=== PATIENT | male | born 1970 | race Caucasian/White ===

== ENCOUNTER 2020-01-10 01:07 | Outpatient (CLI) | payer OTHER, SELFPAY ==
[2020-01-10 18:04] LABS: SARS-CoV-2 RNA PCR Negative
== END 2020-01-10 01:08 | disposition home or self-care (01) ==
LOC: ANHCOVIDDT 01:07
PROVIDERS: PCP Family Medicine; Visit Provider Internal Medicine Gastroenterology
DX: Z01.818 Encounter for other preprocedural examination (principal); Z20.828 Contact with and (suspected) exposure to other viral communicable diseases
CPT/HCPCS: 87635; C9803; U0003

== ENCOUNTER 2020-01-14 00:39 | Day surgery (SDC) | payer OTHER, SELFPAY ==
[2020-01-08 13:59] VITALS: BMI 27.8
[2020-01-14 06:23] VITALS: BMI 27.4
[2020-01-14] MEDS: LACTATED RINGERS 1,000 ML 150 ML IV CONT (06:33)
--- NOTE | 2020-01-14 06:55 | WPDANESEPPF ---
Anes - Initial Pre Proc Eval Procedure: Operation Date: 01/14/20 07:30 Proposed Procedures p Screening Colonoscopy - Chava Baltazar MD Date/Time: 01/14/20 06:55 Surgeon: Chava Baltazar MD Pre Op Diagnosis: neoplasm screening Patient Data Age: 49 Gender: M Height: 5 ft 8 in Weight: 82 kg Allergies Allergy/AdvReac Type Severity Reaction Status Date / Time No Known Allergies Allergy Verified 01/14/20 06:21 Home Medications Medication Instructions Recorded Confirmed Type simvastatin 20 mg tablet 20 mg PO DAILY #90 tablet 10/27/19 01/14/20 Rx Patient hx anesthesia problems: none Family hx anesthesia problems: none PMFSH Past Medical History Medical History Mixed hyperlipidemia Surgical History Surgical History History of tonsillectomy Family History Family History Other Diabetes mellitus Family history of coronary artery disease Family history of elevated blood lipids Hypertension Social History Social History Smoking status: Never smoker Second hand tobacco smoke exposure: No Alcohol intake: never Substance use type: does not use Living arrangements: with family Spiritual care concerns: No Anes - Eval Final PreProcedure Day of Procedure 01/14/20 06:55 Patient weight: overweight Heart: regular rate and rhythm Lungs: clear to auscultation Airway: Mallampati scale class 1 Neurological: alert and oriented Last oral intake: >/= 8 hours ASA classification: II Emergent: no Anesthetic plan: proceed Anesthesia type and monitoring: general GIVS and standard monitoring Informed Consent: The patient's anesthetic plan and its attendant risks and benefits were discussed with the patient/family/POA. Questions were solicited and answers provided to the satisfaction of the patient/family/POA.
[2020-01-14 07:21] VITALS: BP 120/83; PULSE 64; RESP 16; TEMP 36.8; O2SAT 97
--- NOTE | 2020-01-14 07:49 | PM.HPGS ---
History of Present Illness History of Present Illness Consent: Risks, benefits, and alternatives have been discussed and questions answered. Patient agrees to proceed with procedure. Chief complaint: neoplasm screening Narrative: Asim Lamb is a 49 year old male here for first screening colonoscopy Review of Systems Constitutional: Constitutional: Denies headache(s) and Denies weakness Eyes: Eyes: Denies blurry vision ENT: Reports Normal hearing present, Denies headache(s) and Denies neck pain Cardiovascular: Cardiovascular: Denies chest pain and Denies dyspnea Respiratory: Respiratory: Denies dyspnea Gastrointestinal: Gastrointestinal: Reports no additional gastrointestinal complaints Genitourinary: Genitourinary: Denies dysuria Musculoskeletal: Musculoskeletal: Denies neck pain Integumentary/Breasts: Skin/Breast: Denies dry skin Neurologic: Reports Normal hearing present, Denies headache(s) and Denies weakness Psychiatric: Psychiatric: Denies anxiety Endocrine: Endocrine: Denies change in body appearance Hematologic/Lymphatic: Hematologic/Lymphatic: Denies easy bleeding Allergic/Immunologic: Allergic/Immunologic: Denies urticaria PMFSH Past Medical History Medical History (Updated 01/14/20 @ 07:49 by Chava Baltazar MD) Colon cancer screening Mixed hyperlipidemia Surgical History Surgical History History of tonsillectomy Family History Family History Other Diabetes mellitus Family history of coronary artery disease Family history of elevated blood lipids Hypertension Social History Social History Smoking status: Never smoker Second hand tobacco smoke exposure: No Alcohol intake: never Substance use type: does not use Living arrangements: with family Spiritual care concerns: No Meds Home Medications and Allergies Home Medications Medication Instructions Recorded Confirmed Type simvastatin 20 mg tablet 20 mg PO DAILY #90 tablet 10/27/19 01/14/20 Rx Allergies Allergy/AdvReac Type Severity Reaction Status Date / Time No Known Allergies Allergy Verified 01/14/20 06:21 Vital Signs Vital Signs - 24 hr 01/14/20 07:21 Temperature 98.2 F Pulse Rate 64 Respiratory Rate 16 Blood Pressure 120/83 Pulse Oximetry 97 Exam Const: General: comfortable and no acute distress HENMT: General nose exam: Normal nares present Eyes: General: appearance normal, both eyes and all related structures Neck: Neck: no JVD Resp: Auscultation: clear to auscultation bilaterally Cardio: Rate: regular rate Rhythm: regular rhythm GI: Inspection: non-distended GI Palp: Yes Soft to palpation Skin: General skin exam: normal color Neuro: General: gait normal Speech: normal speech Extrem: General: normal to inspection Psych: Mental Status: mental status grossly normal Assessment and Plan Assessment and plan (1) Colon cancer screening: Code(s): Z12.11 - Encounter for screening for malignant neoplasm of colon Status: Acute Assessment and Plan: will proceed with colonoscopy
[2020-01-14 07:52] VITALS: BP 107/63; PULSE 62; RESP 15; O2SAT 96
[2020-01-14 08:02] VITALS: BP 101/66; PULSE 60; RESP 22; O2SAT 95
[2020-01-14 08:19] VITALS: BP 106/72; PULSE 53; RESP 18; O2SAT 95
== END 2020-01-14 08:26 | disposition home or self-care (01) ==
PROVIDERS: PCP Family Medicine; Visit Provider Internal Medicine Gastroenterology
PROC: 0DJD8ZZ Inspection of Lower Intestinal Tract, Via Natural or Artificial Opening Endoscopic (ICD-10-PCS; CPT 45378; principal; 2020-01-14 07:30)
DX: Z12.11 Encounter for screening for malignant neoplasm of colon (principal); K57.30 Diverticulosis of large intestine without perforation or abscess without bleeding; K64.8 Other hemorrhoids; E78.2 Mixed hyperlipidemia
CPT/HCPCS: 45378; J2001; J2704; J7120

== ENCOUNTER → 2020-07-05 09:18 | Outpatient (CLI) | payer OTHER, SELFPAY ==
--- NOTE | ~2020-07-05 | MR_ITS ---
EXAMINATION: MR lumbar spine wo con EXAM DATE: 07/05/2020 09:51 INDICATION: Low back pain, occasional leg pain. Symptoms 10 years. TECHNIQUE: Multi-sequential, multiplanar MR images of the lumbar spine were obtained without contrast . Sagittal T1, T2, T2 fat saturation images. Axial T2 weighted images. Correlation is made to lumba r x-ray 2014. FINDINGS: There is moderate to severe disc disease at L4-5, with 3 mm retrolisthesis. 2 to 3 mm retro listhesis L2 on L3 and 3 mm retrolisthesis L3 on L4. The conus medullaris terminates at the L1 level and has normal signal intensity and morphology. There is mild to moderate disc disease L3-4, mild at L2-3 and L5-S1. There are some degenerative endplate signal changes L4-5. There are no suspicious fo johnie vertebral signal abnormalities identified. Incidental horseshoe kidney. Level by level evaluation: T12-L1: Disc does not extend beyond the endplate margin. Facet arthropathy: None. Neural foraminal stenosis: No stenosis. Central canal stenosis: No stenosis. L1-L2: Disc does not extend beyond the endplate margin. Facet arthropathy: Mild. Neural foraminal stenosis: No stenosis. Central canal stenosis: No stenosis. L2-L3: There is a mild to moderate diffuse disc bulge. Facet arthropathy: Mild. Neural foraminal stenosis: Mild right. Central canal stenosis: Mild. L3-L4: There is a mild to moderate diffuse disc bulge. Facet arthropathy: Mild to moderate. Neural foraminal stenosis: Mild to moderate bilateral. Central canal stenosis: Mild. L4-L5: There is a mild to moderate diffuse disc bulge. Facet arthropathy: Mild to moderate. Neural foraminal stenosis: Moderate left, mild to moderate right. Central canal stenosis: Mild to moderate. L5-S1: There is a mild to moderate diffuse disc bulge. Facet arthropathy: Mild. Neural foraminal stenosis: Mild to moderate bilateral. Central canal stenosis: Mild. IMPRESSION: 1. L4-5 moderate to severe disc disease. 2. Mild subluxations. Reviewed, dictated and finalized at location B.
== END ==
PROVIDERS: PCP Family Medicine; Visit Provider Physician Assistant
DX: M51.36 Other intervertebral disc degeneration, lumbar region (principal)
CPT/HCPCS: 72148

== ENCOUNTER → 2022-03-02 12:14 | Outpatient (CLI) | payer OTHER, SELFPAY ==
--- NOTE | ~2022-03-02 | XR_ITS ---
Clinical Indication: Dyspnea PA and lateral views of the chest: Comparison: 09/06/2005 Findings: The lungs are clear, without evidence of focal consolidation or pleural effusion. Cardiome diastinal silhouette is within normal limits. Bones and soft tissues are unremarkable. Impression: Normal chest. Reviewed, dictated and finalized at [facility]. [place] [employer] Impression: Normal chest.
== END ==
PROVIDERS: PCP Family Medicine; Visit Provider Physician Assistant Medical
DX: R06.00 Dyspnea, unspecified (principal)
CPT/HCPCS: 71046

== ENCOUNTER 2022-07-10 01:18 | Day surgery (SDC) | payer OTHER, SELFPAY ==
[2022-06-30 11:27] VITALS: BMI 28.8
--- NOTE | 2022-06-30 11:32 | PC.NURSE ---
Report to the Outpatient Waiting Room, entrance under the green pavilion located off [facility], at time 0630 on date 07/10/22. Planned Procedure Time: 0830. Time changes happen often and if your time is changed the preop area will call you the afternoon before. - You and your visitor will be asked to self-screen and do not enter if you have any COVID symptoms. - A mask is optional within the hospital at this time. Patients may have clear liquids (water, carbonated beverages, clear teas, apple juice) until 3 hours prior to surgery with a maximum of 20 ounces. - No food from midnight until time of surgery Take the following medications with a SIP of water the morning of surgery: INHALER IF NEEDED DO NOT STOP ANY OF YOUR OTHER PRESCRIPTION MEDICATIONS PRIOR TO SURGERY EXCEPT THE FOLLOWING Medications to discontinue per physician: N/A Date to take last dose: N/A Please no make-up, nail thai, hairspray, perfume, deodorant, or body powder the day of surgery. No jewelry (including any body piercings) or valuables the day of surgery, leave them at home. Please take a shower or bath the night before, or the morning of, surgery with an antibacterial soap. Wear comfortable, loose fitting clothing. - Jewelry must be removed prior to entering the operating room. Rings and piercings that are not removed may be cut off. - The hospital will not accept responsibility for valuables. - Please leave all valuables, including medications, at home the day of surgery. If you are going home after surgery, a licensed helper/driver must drive you home. - NO public transportation without another adult if you receive anesthesia. - We recommend that an adult stay with you for 24 hours following discharge. - We also recommend that you do not drive, make important decision, drink alcoholic beverages, or take any drugs that were not prescribed by your health care provider for at least 24 hours after your discharge time. Follow any additional instructions given to you from your surgeon. If you or anyone in your household have experienced Covid symptoms in the past week, please notify your surgeon or the nurse liaison at the phone number below for possible testing. Telephone instructions given to PT - HERRERA BECKER and asked if any additional questions and then verbalized understanding. Patient advised to call surgeon office or pre surgery nurse liaison [phone] if any additional questions.
[2022-07-10 06:59] VITALS: BP 108/74; PULSE 61; RESP 18; TEMP 36.8; O2SAT 96
[2022-07-10] MEDS: LACTATED RINGERS 1,000 ML 30 ML IV CONT (07:25)
--- NOTE | 2022-07-10 07:47 | WPDANESEPPF ---
Anes - Initial Pre Proc Eval Procedure: Operation Date: 07/10/22 08:30 Proposed Procedures p Excision of Left Posterior Shoulder Subcutaneous Mass - Marvin Joe MD Date/Time: 07/10/22 07:47 Surgeon: Marvin Joe MD Pre Op Diagnosis: Left Posterior Shoulder Lipoma Patient Data Age: 51 Gender: M Height: 1.73 m Weight: 87 kg Last Vital Signs Temp 98.3 F 07/10/22 06:59 Pulse 61 07/10/22 06:59 Resp 18 07/10/22 06:59 BP 108/74 07/10/22 06:59 Pulse Ox 96 07/10/22 06:59 O2 Del Method Room Air 07/10/22 06:59 Allergies Allergy/AdvReac Type Severity Reaction Status Date / Time No Known Allergies Allergy Verified 07/10/22 07:33 Home Medications Medication Instructions Recorded Confirmed Type simvastatin 20 mg tablet (Zocor) 20 mg PO DAILY #90 tabs 01/09/22 07/10/22 Rx albuterol sulfate 90 mcg/actuation 1 inh inhalation Q4H PRN shortness 03/02/22 07/10/22 Rx aerosol inhaler of breath or wheezing #8.5 grams famotidine 20 mg tablet 20 mg PO QHS #30 tabs 04/25/22 07/10/22 Rx omeprazole 40 mg capsule,delayed 40 mg PO DAILY #30 caps 04/25/22 07/10/22 Rx release Patient hx anesthesia problems: none Family hx anesthesia problems: none Results Review: All pre-operative results and documents have been reviewed as part of the pre-operative evaluation. [facility] Past Medical History Medical History Colon cancer screening GERD (gastroesophageal reflux disease) Mixed hyperlipidemia Surgical History Surgical History (Updated 06/28/22 @ 13:00 by Keya Amanda) H/O vasectomy History of tonsillectomy Family History Family History (Updated 06/28/22 @ 12:59 by Keya Amanda) Father Acute myocardial infarction Family history of coronary artery disease Skin cancer Unknown Diabetes mellitus Heart disease Hypertension Other Family history of elevated blood lipids Social History Social History Smoking status: Never smoker Second hand tobacco smoke exposure: No Alcohol intake: current Drinks per week: 3 Alcohol use details: socially; seldom Substance use: never Substance use type: does not use Lack of Transportation: No Lack of Food: Never True Current Housing: I Have Housing Concerned About Future Housing: No Difficulty Paying Gas/Electric Bills: No Difficulty Paying for Meds: No Currently Unemployed: No Education: Bachelor's Degree Difficulty w/ Childcare or Family Care: No Living arrangements: with family Occupation/Education: occupation 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 Informed Consent: The patient's anesthetic plan and its attendant risks and benefits were discussed with the patient/family/POA. Questions were solicited and answers provided to the satisfaction of the patient/family/POA.
--- NOTE | 2022-07-10 08:02 | WPDHPUPDATE1 ---
History and Physical Update Update Date/Time: 07/10/22 08:02 History and Physical has been reviewed, including an updated exam of the patient. There are NO changes in the patient's condition. Risks, benefits, and alternatives have been discussed and questions answered. Patient agrees to proceed with procedure.
[2022-07-10] MEDS: ceFAZolin 2 GM/D5W 50 ML 2 GM/50 ML BAG IVPB (08:21)
[2022-07-10 09:06] VITALS: BP 109/74; PULSE 68; RESP 16; O2SAT 95
--- NOTE | 2022-07-10 09:07 | W.PM.PROC2 ---
Procedure Note - Detailed Date of Procedure 07/10/22 Pre-op Diagnosis Left Posterior Shoulder Lipoma Post-op Diagnosis Same Procedure Performed Excision left posterior shoulder lipoma. Surgeon Marvin Joe MD [employer] JAILYN Tucker Anesthesia MAC and Local Indications Patient is a 51-year-old gentleman who presents with a slowly growing subcutaneous mass in the posterior left shoulder region. His cousin as some soreness in the area. The clinical suspicion based on palpation and visualization is consistent with a benign lipoma. He presents now for excision of the lipomatous mass. Findings 4 x 3 x 1 cm well-circumscribed subcutaneous lipoma left posterior shoulder. Description of Procedure After informed consent was obtained patient brought to the operating room was placed in the right lateral decubitus position on operating table. The area the posterior shoulder was then prepped and draped in usual sterile fashion. IV sedation was then given by Anesthesia and then I performed a time-out correctly identifying the patient as well as procedure to be performed and verifying the site marking. 1% lidocaine mixed with 0.5% Marcaine with injected around the subcutaneous mass for local anesthetic effect. Then made a transverse incision parallel to the long axis of the upper arm with a scalpel dissection was carried down through the dermis skin with a scalpel. I then used electrocautery to dissect down to the capsule of the lipomatous mass and very carefully dissected the mass out from the deeper subcutaneous tissues of. The fascia extended all the way down to the fascia and underlying muscle but did not go under the fascia. The mass was 4cm in length by 3cm width by 1cm in depth and was sent to pathology for examination. I then irrigated the incision with sterile saline solution hemostasis was achieved with utilized for cautery. The was then closed utilizing multiple layers interrupted 3-0 Vicryl sutures in the subcutaneous tissues. The edges were approximated utilizing a running subcuticular 4 Monocryl suture. The incisions were then cleaned and then skin glue sterile dressings were applied. The patient tolerated the procedure well no complications. All sponges, needles, and instrument counts were correct at the end procedure. EBL was _5__cc. The patient was awakened and taken to recovery in stable and satisfactory condition. Implants None Estimated Blood Loss 5 Drains No Packing No Pathology Yes Complications No immediate complications Condition Stable Disposition PACU [facility] Billing Surgery - Charge Forward: Surgery Billing
[2022-07-10 09:30] VITALS: BP 114/74; PULSE 59; RESP 16; O2SAT 97
[2022-07-10 09:50] VITALS: BP 109/79; PULSE 51; RESP 16
== END 2022-07-10 09:59 | disposition home or self-care (01) ==
PROVIDERS: PCP Family Medicine; Visit Provider Surgery
PROC: (CPT 23071; principal; 2022-07-10 08:30)
DX: D17.22 Benign lipomatous neoplasm of skin and subcutaneous tissue of left arm (principal); E78.2 Mixed hyperlipidemia; K21.9 Gastro-esophageal reflux disease without esophagitis; Z79.51 Long term (current) use of inhaled steroids
CPT/HCPCS: 23071; 88304; J0690; J1100; J2250; J2405; J2704; J3010; J7120

== ENCOUNTER 2022-08-04 09:33 | Outpatient (CLI) | payer OTHER, SELFPAY ==
--- NOTE | 2022-08-04 09:40 | ECHO_ITS ---
Patient Info Name: Asim Lamb Age: 51 years : 1970 Gender: Male Ht: 68 in Wt: 185 lbs BSA: 2.03 m2 HR: 72 bpm BP: 132 / 92 mmHg Technical Quality: Good Exam Date: 08/04/2022 9:53 AM Exam Location: [facility] Patient Status: Outpatient Admit Date: 08/04/2022 Staff Ordering Physician: Brenton Le DO Dress Designer: Olamide Iyer RDCS Attending Provider: Brenton Le DO Referring Physician: Rey MELISSA; Exam Type: CA echo doppler color flow Study Info Indications R07.9 - Chest pain, unspecified Complete two-dimensional, color flow and Doppler transthoracic echocardiogram is performed. Summary 1. Complete two-dimensional, color flow and Doppler transthoracic echocardiogram is performed. 2. Left ventricular chamber dimension is normal. 3. Left ventricular systolic function is normal, estimated at 60-65%. 4. The left ventricular diastolic function is grade I diastolic dysfunction. 5. E/e' 7 is not elevated. 6. Global longitudinal strain is normal at -21.6%. 7. There is trace mitral valve regurgitation. 8. No pulmonary hypertension, estimated pulmonary arterial systolic pressure is 34 mmHg. Left Ventricle E/e' 7 is not elevated. Global longitudinal strain is normal at -21.6%. Left ventricular chamber dimension is normal. Left ventricular systolic function is normal, estimated at 60-65%. The left ventricular diastolic function is grade I diastolic dysfunction. Right Ventricle Right ventricular systolic function is normal and with normal TAPSE 1.7 cm. Right ventricular chamber dimension is normal. Left Atria Left atrial chamber dimension is normal. Right Atria Right atrial chamber dimension is normal. Aortic Valve The aortic valve is trileaflet. There is no aortic valve stenosis. There is no aortic valve regurgitation. Pulmonic Valve There is no pulmonic regurgitation. Mitral Valve There is no mitral valve stenosis. There is trace mitral valve regurgitation. Tricuspid Valve There is no tricuspid valve regurgitation. No pulmonary hypertension, estimated pulmonary arterial systolic pressure is 34 mmHg. Pericardium/Pleural There is no pericardial effusion. Inferior Vena Cava Normal inferior vena cava with >50% collapse upon inspiration consistent with normal right atrial pressure, 5 mmHg. Aorta The aortic root size at the sinus of Valsalva is normal. Left Ventricular Outflow Tract Name Value Normal LVOT 2D LVOT Diameter 2.0 cm LVOT Doppler LVOT Peak Velocity 106 cm/s LVOT Peak Gradient 4 mmHg LVOT Mean Gradient 2 mmHg LVOT VTI 22 cm LVOT VTI/AV VTI Ratio 0.9 LVOT Stroke Volume 69 ml LVOT CO 4.2 l/min LVOT CI 2.1 l/min/m2 Pulmonic Valve Name Value Normal RVOT Doppler RVOT
== END 2022-08-04 09:34 | disposition home or self-care (01) ==
LOC: ANHCARD 09:33
PROVIDERS: PCP Family Medicine; Visit Provider Internal Medicine Cardiovascular Disease
DX: R07.9 Chest pain, unspecified (principal)
CPT/HCPCS: 93306

== ENCOUNTER 2022-09-01 08:50 | Outpatient (CLI) | payer OTHER, SELFPAY ==
--- NOTE | 2022-09-01 08:58 | EST_ITS ---
Patient Info Name: Asim Lamb Age: 51 years : 1970 Gender: Male Ht: 68 in Wt: 185 lbs BSA: 2.03 m2 HR: 53 bpm BP: 119 / 80 mmHg Heart Rhythm: Sinus Rhythm Technical Quality: Good Exam Date: 09/01/2022 9:04 AM Exam Location: [facility] Patient Status: Outpatient Admit Date: 09/01/2022 Staff Ordering Physician: Brenton Pires DO Warehouse Insulation Worker: Bri Malik RDCS Attending Provider: DR. PIRES Referring Physician: Rey MELISSA; Exam Type: CA stress echo Study Info Indications R06.00 - Dyspnea, unspecified Treadmill exercise stress echocardiogram is performed. Summary 1. 1. Negative Gigi exercise stress test for ischemic ST changes by ECG criteria. 2. 2. Good functional capacity, achieving 12 METs of workload. 3. 3. Appropriate HR response to exercise. 4. 4. Appropriate HR recovery at 1 minute post exercise. 5. 5. Negative stress echocardiogram for ischemia by wall motion analysis. 6. 6. Patient informed of the above results. Stress Echo Findings Left Ventricle Appropriate increase in LV endocardial thickening with systole. Appropriate augmentation of contractility with systole. No wall motion abnormality. Left Ventricle Normal LV systolic function, no wall motion abnormality. Protocol: Gigi Stress ECG Details Stage: REST Duration (min): 0 min : 54 sec Speed (mph): 0.0 Grade (%): 0 HR (bpm): 60 SBP (mmHg): 119 DBP (mmHg): 80 METS: --- Stage: REST Duration (min): 9 min : 16 sec Speed (mph): 0.0 Grade (%): 0 HR (bpm): 63 SBP (mmHg): 119 DBP (mmHg): 80 METS: --- Stage: STAGE 1 Duration (min): 1 min : 0 sec Speed (mph): 1.7 Grade (%): 10 HR (bpm): 92 SBP (mmHg): 119 DBP (mmHg): 80 METS: --- Stage: STAGE 1 Duration (min): 2 min : 0 sec Speed (mph): 1.7 Grade (%): 10 HR (bpm): 95 SBP (mmHg): 119 DBP (mmHg): 80 METS: --- Stage: STAGE 1 Duration (min): 3 min : 0 sec Speed (mph): 1.7 Grade (%): 10 HR (bpm): 95 SBP (mmHg): 140 DBP (mmHg): 94 METS: --- Stage: STAGE 2 Duration (min): 1 min : 0 sec Speed (mph): 2.5 Grade (%): 12 HR (bpm): 109 SBP (mmHg): 140 DBP (mmHg): 94 METS: --- Stage: STAGE 2 Duration (min): 2 min : 0 sec Speed (mph): 2.5 Grade (%): 12 HR (bpm): 113 SBP (mmHg): 142 DBP (mmHg): 90 METS: --- Stage: STAGE 2 Duration (min): 3 min : 0 sec Speed (mph): 2.5 Grade (%): 12 HR (bpm): 118 SBP (mmHg): 142 DBP (mmHg): 90 METS: --- Stage: STAGE 3 Duration (min): 1 min : 0 sec Speed (mph): 3.4 Grade (%): 14 HR (bpm): 127 SBP (mmHg): 156 DBP (mmHg): 91 METS: --- Stage: STAGE 3 Duration (min): 2 min : 0 sec Speed (mph): 3.4 Grade (%): 14 HR (bpm): 139 SBP (mmHg): 156 DBP (mmHg): 91 METS: --- Stage: STAGE 3 Duration (min): 3 min : 0 sec Speed (mph): 3.4 Grade (%): 14 HR (bpm): 141 SBP (mmHg): 163 DBP (mmHg): 87 METS: --- Stage: STAGE 4 Duration (min): 1
== END 2022-09-01 08:51 | disposition home or self-care (01) ==
PROVIDERS: PCP Family Medicine; Visit Provider Internal Medicine Cardiovascular Disease
DX: R06.00 Dyspnea, unspecified (principal)
CPT/HCPCS: 93351

== ENCOUNTER 2023-10-29 10:09 | Outpatient (CLI) | payer OTHER, SELFPAY ==
--- NOTE | ~2023-10-29 | US_ITS ---
Limited Abdominal Sonogram: Real-time sonographic imaging of the right upper quadrant was performed. Clinical History: Abnormal serum enzyme levels Findings: The liver appears normal with no evidence of mass lesion or bile duct dilatation. Main por dinorah vein demonstrates normal direction of flow. The gallbladder is well distended, and appears normal with no evidence of gallstone or wall thickening. The common bile duct measures 3 mm. The visualize d pancreas, aorta, and IVC are unremarkable. Impression: No significant abnormality seen. Reviewed, dictated and finalized at location M. Impression: No significant abnormality seen.
== END 2023-10-29 10:10 ==
PROVIDERS: PCP Family Medicine; Visit Provider Physician Assistant Medical
DX: R74.8 Abnormal levels of other serum enzymes (principal)
CPT/HCPCS: 76705